=== PATIENT | male | born 2000 ===

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

== ENCOUNTER 2019-03-02 19:46 | Emergency (ER) | payer OTHER ==
[2019-03-02 20:41] VITALS: BP 117/62; PULSE 80; RESP 16; TEMP 97.2; O2SAT 100
== END 2019-03-02 20:30 | disposition home or self-care (01) ==
LOC: ED 19:46
DX: H10.503 Unspecified blepharoconjunctivitis, bilateral (principal)
CPT/HCPCS: 99282